=== PATIENT | male | born 2000 | race Caucasian/White ===

== ENCOUNTER 2019-04-02 22:30 | Emergency (ER) | payer SELFPAY ==
[~2019-04-02] VITALS: Ht 170.2 cm; Wt 84.0 kg
[2019-04-03] MEDS ORDERED: CHLORDIAZEPOXIDE 25MG CAPSULE PO ONE
[2019-04-03 00:10] VITALS: BP 124/72
== END 2019-04-03 00:28 | disposition home or self-care (01) ==
LOC: ER 22:30
DX: F10.129 Alcohol abuse with intoxication, unspecified (principal); Y90.9 Presence of alcohol in blood, level not specified
CPT/HCPCS: 99283